=== PATIENT | male | born 1995 ===

== ENCOUNTER 2020-12-19 01:04 | Emergency (ER) | payer SELFPAY ==
--- NOTE | 2020-12-19 03:35 | Emergency Department Report ---
ED General Adult HPI - General Chief complaint: Psych Stated complaint: SUICIDAL IDEATION PUI?: No Time Seen by Provider: 12/19/20 02:32 Source: patient, EMS ( EMS documentation not available at time of chart dictation ), RN notes reviewed Mode of arrival: Ambulatory Limitations: No Limitations - History of Present Illness Initial comments: The patient was evaluated in the emergency department for symptoms described in the history of present illness. He/she was evaluated in the context of the global COVID-19 pandemic, which necessitated consideration that the patient might be at risk for infection with the virus that causes COVID-19. Institutional protocols and algorithms that pertain to the evaluation of patients at risk for COVID-19 are in a state of rapid change based on information released by regulatory bodies including the CDC and federal and state organizations. These policies and algorithms were followed during the patient's care in the emergency department. Please note that these policies, procedures and recommendations changed on a rapid basis. The patient is a 25-year-old gentleman. He is not known to myself previously. He previously lived in the [facility], and has been here in the [facility] since the beginning of the year. He has a history of ADHD, bipolar and schizophrenia. The patient presents to the ER today with complaint of painless suicidality. He states that he will strangle himself. He denies physical pain. He denies overdose. The patient states that he is homeless. The patient states he has no one to help him out. The patient denies Covid symptomatology. The patient states his suicidal thoughts are constant. He does not describe exacerbating or relieving factors. His suicidal thoughts do not radiate anywhere. -: Gradual Consistency: constant Improves with: other Worsens with: other Associated Symptoms: denies other symptoms - Related Data Allergies Allergy/AdvReac Type Severity Reaction Status Date / Time No Known Allergies Allergy Verified 12/19/20 01:13 ED Review of Systems ROS: Stated complaint: SUICIDAL IDEATION Other details as noted in HPI Comment: All other systems reviewed and negative Psychiatric: depression, suicidal thoughts ED Past Medical Hx - Past Medical History Previous Medical History?: Yes Hx Psychiatric Treatment: Yes (ADHD, Bipolar, schizophrenia) ED Physical Exam - General Limitations: No Limitations General appearance: alert, in no apparent distress - Head Head exam: Present: atraumatic, normocephalic - Eye Eye exam: Present: normal appearance, EOMI. Absent: nystagmus - ENT ENT exam: Present: normal exam, normal orophraynx, mucous membranes moist, normal external ear exam - Neck Neck exam: Present: normal inspection, full ROM. Absent: tenderness, meningismus - Respiratory Respiratory exam: Present: normal lung sounds bilaterally. Absent: respiratory distress, wheezes, rales, rhonchi, stridor, decreased breath sounds - Cardiovascular Cardiovascular Exam: Present: regular rate, normal rhythm, normal heart sounds. Absent: bradycardia, tachycardia, irregular rhythm, systolic murmur, diastolic murmur, rubs, gallop - GI/Abdominal GI/Abdominal exam: Present: soft. Absent: distended, tenderness, guarding, rebound, rigid, pulsatile mass - Rectal Rectal exam: Present: deferred - Extremities Exam Extremities exam: Present: normal inspection, full ROM, other (2+ pulses noted in the bilateral upper and lower extremities. There is no palpable cord. negative Homans sign. Muscular compartments are soft. The pelvis is stable.). Absent: pedal edema, calf tenderness - Back Exam Back exam: Present: normal inspection, full ROM. Absent: tenderness, CVA tenderness (R), CVA tenderness (L), paraspinal tenderness, vertebral tenderness - Neurological Exam Neurological exam: Present: alert, oriented X3, normal gait, other (No facial droop. Tongue midline. Extraocular movements intact bilaterally. Facial sensation intact to light touch in V1, V2, V3 distribution bilaterally. 5 and a 5 strength in 4 extremities. Sensation intact to light touch in 4 extremities.). Absent: motor sensory deficit - Psychiatric Psychiatric exam: Present: flat affect - Skin Skin exam: Present: warm, dry, intact, normal color. Absent: rash ED Course Vital Signs 12/19/20 01:13 Temperature 98.4 F Pulse Rate 100 H Respiratory 18 Rate Blood Pressure 124/80 [Right] O2 Sat by Pulse 96 Oximetry ED Medical Decision Making - Lab Data Result diagrams: 12/19/20 04:05 12/19/20 04:05 Vital Signs 12/19/20 01:13 Temperature 98.4 F Pulse Rate 100 H Respiratory 18 Rate Blood Pressure 124/80 [Right] O2 Sat by Pulse 96 Oximetry Lab Results 12/19/20 12/19/20 12/19/20 Range/Units 04:05 04:05 04:05 WBC 7.2 (4.5-11.0) K/mm3 RBC 4.66 (3.65-5.03) M/mm3 Hgb 13.3 (11.8-15.2) gm/dl Hct 40.0 (35.5-45.6) % MCV 86 (84-94) fl MCH 29 (28-32) pg MCHC 33 (32-34) % RDW 14.3 (13.2-15.2) % Plt Count 223 (140-440) K/mm3 Sodium 137 (137-145) mmol/L Potassium 4.2 (3.6-5.0) mmol/L Chloride 103.1 (98-107) mmol/L Carbon Dioxide 25 (22-30) mmol/L Anion Gap 13 mmol/L BUN 19 (9-20) mg/dL Creatinine 0.9 (0.8-1.3) mg/dL Estimated GFR > 60 ml/min BUN/Creatinine Ratio 21 % Glucose 103 H (75-100) mg/dL Calcium 8.9 (8.4-10.2) mg/dL Magnesium 2.30 (1.7-2.3) mg/dL Total Creatine Kinase 193 H (55-170) units/L TSH 1.910 (0.270-4.200) mlU/mL Salicylates (2.8-20.0) mg/dL Acetaminophen (10.0-30.0) ug/mL Plasma/Serum Alcohol (0-0.07) % 12/19/20 12/19/20 12/19/20 Range/Units 04:05 04:05 04:05 WBC (4.5-11.0) K/mm3 RBC (3.65-5.03) M/mm3 Hgb (11.8-15.2) gm/dl Hct (35.5-45.6) % MCV (84-94) fl MCH (28-32) pg MCHC (32-34) % RDW (13.2-15.2) % Plt Count (140-440) K/mm3 Sodium (137-145) mmol/L Potassium (3.6-5.0) mmol/L Chloride (98-107) mmol/L Carbon Dioxide (22-30) mmol/L Anion Gap mmol/L BUN (9-20) mg/dL Creatinine (0.8-1.3) mg/dL Estimated GFR ml/min BUN/Creatinine Ratio % Glucose (75-100) mg/dL Calcium (8.4-10.2) mg/dL Magnesium (1.7-2.3) mg/dL Total Creatine Kinase (55-170) units/L TSH (0.270-4.200) mlU/mL Salicylates < 0.3 L (2.8-20.0) mg/dL Acetaminophen 5.0 L (10.0-30.0) ug/mL Plasma/Serum Alcohol < 0.01 (0-0.07) % - Medical Decision Making Differential diagnosis, including but not limited to: Mood disorder, suicidality, dysthymia, malingering, secondary gain, medical clearance for psychiatric placement, encounter for behavioral health screening examination Assessment and plan: 25-year-old gentleman, with resolved tachycardia, who presents as awake, alert, cooperative, in no acute distress, who states that he is suicidal with a plan to strangle himself. I suspect that this patient is presenting for the purposes of secondary gain. However, this patient has poor psychosocial resources and outside support system, and is also homeless, and rep resents a danger to himself. He is placed on a 1013. Screening laboratory studies unremarkable. Urinalysis, urine drug screen, and Covid swab ordered in anticipation of psychiatric placement and disposition. The emergency room will follow up on the Covid swab, UDS, and urinalysis. Mental health consultation is requested. At this point in time, this patient does not appear to have an immediate medical contraindication to psychiatric admission, evaluation, consultation and placement. Final disposition as per psychiatric team. Should they recommend discharge, this patient will have his 1013 rescinded and discontinued, and he will be given outpatient resources. Critical care attestation.: If time is entered above; I have spent that time in minutes in the direct care of this critically ill patient, excluding procedure time. ED Disposition Clinical Impression: Medical clearance for psychiatric admission Disposition: [address] [place] [address] Is pt being admited?: No Does the pt Need Aspirin: No Condition: Good
[2020-12-19] MEDS ORDERED: HALOPERIDOL LACTATE 5 MG/1 ML INJ IM PRN (03:47)
[2020-12-19] MEDS ORDERED: LORazepam 2 MG/ML VIAL IM PRN (03:47)
[2020-12-19] MEDS ORDERED: diphenhydrAMINE 25 MG CAP PO PRN (03:47)
[2020-12-19 04:23] LABS: Hemoglobin 13.3 gm/dl (11.8-15.2); Mean Corpuscular HGB Conc 33 % (32-34); Mean Corpuscular Volume 86 fl (84-94); Platelet Count 223 K/mm3 (140-440); Red Blood Count 4.66 M/mm3 (3.65-5.03); Red Cell Distribution Width 14.3 % (13.2-15.2)
[2020-12-19 04:44] LABS: BUN/Creatinine Ratio 21; Blood Urea Nitrogen 19 mg/dL (9-20); Calcium 8.9 mg/dL (8.4-10.2); Hemolysis Index 21
[2020-12-19 08:14] LABS: Bilirubin,Urine NEG (Negative); Blood,Urine NEG (Negative); Color,Urine Yellow (Yellow); Mucus,Urine 2+ /HPF; Protein,Urine <15 mg/dL mg/dL (Negative); Urobilinogen,Urine < 2.0 mg/dL (<2.0)
[2020-12-19 08:22] LABS: Amphetamine Screen,Urine Negative; Benzodiazepines Screen,Urine Negative; Cocaine Screen,Urine Negative; Methadone Screen,Urine Negative; Opiate Screen,Urine Negative
[2020-12-19 09:17] LABS: Cannabinoid Screen,Urine Positive
--- NOTE | 2020-12-19 10:36 | Consultation ---
History of Present Illness - Reason for Consult Consult date: 12/19/20 Reason for consult: SI - History of Present Psychiatric Illness Janiya Catalan is a 25y/o male patient who endorses suicidal thoughts. The patient states he is tired of living on the streets. He says he is hearing voices telling him to hurt himself. The patient says he has a plan to strangle himself. He says he's from [place] and has no family around. The patient says "I followed a girl here and she bounced on me." When asking why won't he go back to [place], the patient says "I'm not going backwards." He says he has a history of bipolar, schizophrenia, and ADHD. PAST PSYCHIATRIC HISTORY Diagnoses: ADHD, Bipolar, Schizophrenia Suicide attempts or Self-harm behavior: Yes Prior psychiatric hospitalizations: Yes Substance Abuse history: Denies Previous psychiatric medications tried: abilify, trazodone, zoloft, remeron, risperidone Outpatient treatment: None reported PAST MEDICAL HISTORY: None reported Family Psychiatric History: None reported or documented SOCIAL HISTORY Marital Status: single Living Arrangements: homeless Employment Status: unemployed Access to guns/weapons: None report Education: History of Abuse: Denies Legal History: None reported REVIEW OF SYSTEMS Constitutional: Negative for weight loss ENT: Negative for stridor Respiratory: Negative for cough or hemoptysis All other systems reviewed and are negative MENTAL STATUS EXAMINATION General Appearance and Behavior: Age appropriate, good hygiene, wearing appropriate clothes, calm and cooperative Cooperation: cooperative Psychomotor Behavior: Psychomotor normal Mood: Depressed Affect and affective range: congruent with stated mood Thought Process: goal directed Thought Content: Hallucinations, hopelessness Speech: Normal rate, volume and rhythm Suicidal Ideation: Yes Homicidal Ideation: Denies Hallucinations: Auditory Delusions: None elicited Impulse Control: Limied Insight and Judgment: Limited insight and judgment Memory: Limited Attention: Limited Orientation: Alert, oriented Assessment and Plan (1)Bipolar Disorder TREATMENT PLAN 1013 Zoloft 25mg po daily Abilift 5mg po daily Trazodone 50mg po qhs Sitter: per primary Medical: per primary Disposition: Recommend acute psychiatric inpatient treatment Will follow. Thanks Case staffed with Dr. Ny Medications and Allergies Allergies Allergy/AdvReac Type Severity Reaction Status Date / Time No Known Allergies Allergy Verified 12/19/20 01:13 Home Medications Medication Instructions Recorded Confirmed Last Taken Type No Known Home Medications [No 12/19/20 12/19/20 Unknown History Reported Home Medications] Active Meds: Active Medications Diphenhydramine HCl (Diphenhydramine 25 Mg Cap) 50 mg PO QHS PRN PRN Reason: Insomnia Haloperidol Lactate (Haloperidol Lactate 5 Mg/1 Ml Inj) 5 mg IM Q6HR PRN PRN Reason: Agitation Lorazepam (Lorazepam 2 Mg/Ml Vial) 2 mg IM Q4HR PRN PRN Reason: Agitation Mental Status Exam - Vital signs Last Vital Signs Temp 98.2 F 12/19/20 08:40 Pulse 98 H 12/19/20 08:40 Resp 18 12/19/20 08:40 BP 118/65 12/19/20 08:40 Pulse Ox 98 12/19/20 08:40 Results Result Diagrams: 12/19/20 04:05 12/19/20 04:05 Abnormal lab results 12/19/20 12/19/20 12/19/20 Range/Units 04:05 04:05 04:05 Glucose 103 H (75-100) mg/dL Total Creatine Kinase 193 H (55-170) units/L Salicylates < 0.3 L (2.8-20.0) mg/dL Acetaminophen 5.0 L (10.0-30.0) ug/mL All other labs normal.
[2020-12-19] MEDS ORDERED: ARIPiprazole 5 MG TAB PO SCH (12:00)
[2020-12-19] MEDS ORDERED: ESCITALOPRAM 10 MG/10 ML ORAL LIQD PO SCH (12:00)
[2020-12-19] MEDS ORDERED: traZODone 50 MG TAB PO SCH (22:00)
[2020-12-20 08:15] VITALS: BP 114/63
== END 2020-12-20 09:02 ==
LOC: ED 01:04
DX: R45.851 Suicidal ideations (principal); Z04.6 Encounter for general psychiatric examination, requested by authority; F90.9 Attention-deficit hyperactivity disorder, unspecified type; F31.9 Bipolar disorder, unspecified; F20.9 Schizophrenia, unspecified; Z20.822 Contact with and (suspected) exposure to COVID-19
CPT/HCPCS: 36415; 80048; 80307; 81001; 82550; 83735; 84443; 85027; 99285; U0003; 80320; G0480

== ENCOUNTER 2021-03-08 01:29 | Emergency (ER) | payer SELFPAY ==
[2021-03-08] MEDS ORDERED: HALOPERIDOL LACTATE 5 MG/1 ML INJ IM PRN (02:10)
[2021-03-08] MEDS ORDERED: LORazepam 2 MG/ML VIAL IM PRN (02:10)
--- NOTE | 2021-03-08 02:11 | Emergency Department Report ---
ED General Adult HPI - General Chief complaint: Psych Stated complaint: SI PUI?: No Time Seen by Provider: 03/08/21 02:02 Source: patient, EMS (Verbal report received from emergency medical services. EMS documentation not available at time of chart dictation ), RN notes reviewed, old records reviewed Mode of arrival: Ambulatory Limitations: No Limitations - History of Present Illness Initial comments: The patient was evaluated in the emergency department for symptoms described in the history of present illness. He/she was evaluated in the context of the global COVID-19 pandemic, which necessitated consideration that the patient might be at risk for infection with the virus that causes COVID-19. Institutional protocols and algorithms that pertain to the evaluation of patients at risk for COVID-19 are in a state of rapid change based on information released by regulatory bodies including the CDC and federal and stat e organizations. These policies and algorithms were followed during the patient's care in the emergency department. Please note that these policies, procedures and recommendations changed on a rapid basis. The patient is a 25-year-old gentleman whom I have evaluated in the past. He is brought to the hospital today by emergency medical services. The patient today complains of painless suicidality. He states he might strangle himself or overdose. EMS informs me that they received a 911 phone call for an individual complaining of suicidality and homelessness. This patient was reportedly discharged from a psychiatric facility 2 to 3 days ago. The patient states he has nowhere to go. The patient denies physical pain. The patient denies COVID symptoms. Consistency: constant Improves with: none Worsens with: none Associated Symptoms: denies other symptoms - Related Data Home Medications Medication Instructions Recorded Confirmed Last Taken No Known Home Medications [No 12/19/20 12/19/20 Unknown Reported Home Medications] Allergies Allergy/AdvReac Type Severity Reaction Status Date / Time No Known Allergies Allergy Verified 03/08/21 01:59 ED Review of Systems ROS: Stated complaint: SI Other details as noted in HPI Comment: All other systems reviewed and negative Psychiatric: as per HPI, suicidal thoughts ED Past Medical Hx - Past Medical History Hx Psychiatric Treatment: Yes (ADHD, Bipolar, schizophrenia) - Social History Smoking Status: Unknown if ever smoked - Medications Home Medications: Home Medications Medication Instructions Recorded Confirmed Last Taken Type No Known Home Medications [No 12/19/20 12/19/20 Unknown History Reported Home Medications] ED Physical Exam - General Limitations: No Limitations General appearance: alert, in no apparent distress, obese - Head Head exam: Present: atraumatic, normocephalic - Eye Eye exam: Present: normal appearance, EOMI - ENT ENT exam: Present: normal exam, normal orophraynx, mucous membranes moist, normal external ear exam - Neck Neck exam: Present: normal inspection, full ROM. Absent: tenderness, meningismus - Respiratory Respiratory exam: Present: normal lung sounds bilaterally. Absent: respiratory distress, wheezes, rales, rhonchi, stridor, decreased breath sounds - Cardiovascular Cardiovascular Exam: Present: regular rate, normal rhythm, normal heart sounds. Absent: bradycardia, tachycardia, irregular rhythm, systolic murmur, diastolic murmur, rubs, gallop - GI/Abdominal GI/Abdominal exam: Present: soft. Absent: distended, tenderness, guarding, rebound, rigid, pulsatile mass - Rectal Rectal exam: Present: deferred - Extremities Exam Extremities exam: Present: normal inspection, full ROM, other (2+ pulses noted in the bilateral upper and lower extremities. There is no palpable cord. negative Homans sign. Muscular compartments are soft. The pelvis is stable.). Absent: pedal edema, calf tenderness - Back Exam Back exam: Present: normal inspection, full ROM. Absent: tenderness, CVA tenderness (R), CVA tenderness (L), paraspinal tenderness, vertebral tenderness - Neurological Exam Neurological exam: Present: alert, oriented X3, normal gait, other (No facial droop. Tongue midline. Extraocular movements intact bilaterally. Facial sensation intact to light touch in V1, V2, V3 distribution bilaterally. 5 and a 5 strength in 4 extremities. Sensation intact to light touch in 4 extremities.). Absent: motor sensory deficit - Psychiatric Psychiatric exam: Present: flat affect, suicidal ideation - Skin Skin exam: Present: warm, dry, intact, normal color. Absent: rash ED Course Vital Signs 03/08/21 01:58 Temperature 98.9 F Pulse Rate 73 Respiratory 18 Rate Blood Pressure 150/90 [Left] O2 Sat by Pulse 100 Oximetry - Reevaluation(s) Reevaluation #1: 03/08/21 03:19 Differential diagnosis, including but not limited to: Malingering, secondary gain, encounter for medical screening examination, encounter for behavioral health screening examination Assessment and plan: 25-year-old gentleman, who was afebrile, with reassuring vital signs, who is clinically sober with a GCS of 15, presenting to the ER today with a primary complaint of suicidality and homelessness. The patient is reportedly discharged from a psychiatric facility 2 to 3 days ago. I suspect that this patient is presenting for the purposes of secondary gain, i.e. usp, and food. However, given poor support, lack of outpatient resources, patient will be placed on 1013, appropriate laboratory studies will be ordered, and we will request a psychiatric consultation and evaluation. COVID swab ordered in anticipation of potential placement. I discussed this plan of care with the patient, who is agreeable. 03/08/21 04:12 Laboratory studies are unremarkable. Urinalysis is pending. Patient does not appear to have an immediate medical contraindication to psychiatric admission, evaluation, consultation and placement. Ultimate disposition as per the p sychiatric team. The emergency room will follow along as the patient provides a urine sample. However, the patient is young and medically healthy, and denies irritative/obstructive urinary symptoms ED Medical Decision Making - Lab Data Result diagrams: 03/08/21 02:15 03/08/21 02:15 Vital Signs 03/08/21 01:58 Temperature 98.9 F Pulse Rate 73 Respiratory 18 Rate Blood Pressure 150/90 [Left] O2 Sat by Pulse 100 Oximetry Lab Results 03/08/21 03/08/21 03/08/21 Range/Units 02:15 02:15 02:15 WBC (4.5-11.0) K/mm3 Hgb (11.8-15.2) gm/dl Sodium 140 (137-145) mmol/L Potassium 4.2 (3.6-5.0) mmol/L Chloride 101.7 (98-107) mmol/L Carbon Dioxide 25 (22-30) mmol/L Anion Gap 18 mmol/L BUN 15 (9-20) mg/dL Creatinine 0.9 (0.8-1.3) mg/dL Estimated GFR > 60 ml/min BUN/Creatinine Ratio 17 % Glucose 95 (75-100) mg/dL Calcium 9.1 (8.4-10.2) mg/dL Salicylates < 0.3 L (2.8-20.0) mg/dL Acetaminophen 5.0 L (10.0-30.0) ug/mL Plasma/Serum Alcohol (0-0.07) % 03/08/21 03/08/21 Range/Units 02:15 02:15 WBC 7.1 (4.5-11.0) K/mm3 Hgb 13.4 (11.8-15.2) gm/dl Sodium (137-145) mmol/L Potassium (3.6-5.0) mmol/L Chloride (98-107) mmol/L Carbon Dioxide (22-30) mmol/L Anion Gap mmol/L BUN (9-20) mg/dL Creatinine (0.8-1.3) mg/dL Estimated GFR ml/min BUN/Creatinine Ratio % Glucose (75-100) mg/dL Calcium (8.4-10.2) mg/dL Salicylates (2.8-20.0) mg/dL Acetaminophen (10.0-30.0) ug/mL Plasma/Serum Alcohol < 0.01 (0-0.07) % Critical care attestation.: If time is entered above; I have spent that time in minutes in the direct care of this critically ill patient, excluding procedure time. ED Disposition Clinical Impression: Homelessness, Suicidal ideation, Medical clearance for psychiatric admission Disposition: [address] [place] [address] Is pt being admited?: No Does the pt Need Aspirin: No Condition: Good Referrals: PRIMARY CARE, [Primary Care Provider] - 3-5 Days
[2021-03-08 02:57] LABS: BUN/Creatinine Ratio 17; Blood Urea Nitrogen 15 mg/dL (9-20); Calcium 9.1 mg/dL (8.4-10.2); Hemoglobin 13.4 gm/dl (11.8-15.2); Hemolysis Index 21
[2021-03-08 03:33] LABS: Hematocrit 40.4 % (35.5-45.6); Mean Corpuscular HGB Conc 33 % (32-34); Mean Corpuscular Volume 83 fl (84-94); Platelet Count 235 K/mm3 (140-440); Red Blood Count 4.85 M/mm3 (3.65-5.03); Red Cell Distribution Width 14.1 % (13.2-15.2)
--- NOTE | 2021-03-08 10:28 | Consultation ---
History of Present Illness - Reason for Consult Consult date: 03/08/21 Reason for consult: suicidal ideation - History of Present Psychiatric Illness Janiya Catalan is a 25 year old male with history of Bipolar, Schizophrenia, and ADHD who presents to the ED with suicidal ideation. In my interview with the patient, he is seclusion. The patient reports that he was recently discharged from [facility]. The patient state recent stressor such as homelessness. The patient endorses suicidal ideation, auditory and visual hallucinations " voices are saying hurt myself, and I see blood everywhere." PAST PSYCHIATRIC HISTORY: Diagnoses: Bipolar, Schizophrenia, ADHD Suicide attempts or Self-harm behavior: Yes Prior psychiatric hospitalizations: Yes Substance Abuse history: Denies Previous psychiatric medications tried: Zoloft, Risperidone Outpatient treatment: Unknown PAST MEDICAL HISTORY: unknown Family Psychiatric History: None reported or documented SOCIAL HISTORY Marital Status: single Living Arrangements: homeless Employment Status: unemployed Access to guns/weapons: Denies Education:10th History of Abuse:denies Legal History: Denies REVIEW OF SYSTEMS Constitutional: Negative for weight loss ENT: Negative for stridor Respiratory: Negative for cough or hemoptysis All other systems reviewed and are negative MENTAL STATUS EXAMINATION General Appearance and Behavior: Age appropriate, good hygiene, wearing appropriate clothes. calm, cooperative Cooperation: Cooperative Psychomotor Behavior: Psychomotor normal Mood:"depressed" Affect and affective range: congruent with stated mood Thought Process: Circumstantial Thought Content: Suicidal Speech: normal tone and pace Suicidal Ideation:Yes Homicidal Ideation: Denies Hallucinations: Yes Delusions:Denies Impulse Control: Limited Insight and Judgment: Limited insight and poor judgment Memory: Limited Attention: distracted Orientation: a/o x 3 Assessment (1)Schizophrenia (2) Current Visit: Yes Status: Acute Treatment plan 1013 Continue previous prescribed meds Start Risperidone 1 mg po BID Start Zoloft 50 mg po Daily Risks, benefits and alternatives of medications discussed with the patient, questions answered and consent obtained from patient. PSYCHOTHERAPY: Supportive psychotherapy provided MEDICAL: Per primary team DELIRIUM PRECAUTIONS: Please re-orient patient frequently, keep lights on during the day, and minimize benzodiazepines and opiates as these medications could worsen patient's confusion. [employer]: Per medical team DISPOSITION: Recommend acute inpatient psychiatric hospitalization. Will follow. Thank you for the consult. Please contact with any questions and/or concerns. Case staffed with Dr. Anant Medications and Allergies Allergies Allergy/AdvReac Type Severity Reaction Status Date / Time No Known Allergies Allergy Verified 03/08/21 01:59 Home Medications Medication Instructions Recorded Confirmed Last Taken Type No Known Home Medications [No 12/19/20 12/19/20 Unknown History Reported Home Medications] Active Meds: Active Medications Haloperidol Lactate (Haloperidol Lactate 5 Mg/1 Ml Inj) 5 mg IM Q6HR PRN PRN Reason: Agitation Lorazepam (Lorazepam 2 Mg/Ml Vial) 2 mg IM Q4HR PRN PRN Reason: Agitation Mental Status Exam - Vital signs Last Vital Signs Temp 98.9 F 03/08/21 01:58 Pulse 73 03/08/21 01:58 Resp 18 03/08/21 01:58 BP 150/90 03/08/21 01:58 Pulse Ox 100 03/08/21 01:58 Results Result Diagrams: 03/08/21 02:15 03/08/21 02:15 Abnormal lab results 03/08/21 03/08/21 03/08/21 Range/Units 02:15 02:15 02:15 MCV 83 L (84-94) fl Salicylates < 0.3 L (2.8-20.0) mg/dL Acetaminophen 5.0 L (10.0-30.0) ug/mL All other labs normal.
[2021-03-08] MEDS ORDERED: SERTRALINE 50 MG TAB PO NR (10:36)
[2021-03-08] MEDS: risperiDONE 1 MG TAB PO SCH ×2 (11:30→23:37)
--- NOTE | 2021-03-08 12:28 | Event Note ---
Date: 03/08/21 S: Patient reportedly fondling himself all night requiring seclusion. No other events reported overnight. O: Vital Signs - 8 hr 03/08/21 11:07 Temperature 98 F Pulse Rate 78 Respiratory 16 Rate Blood Pressure 118/72 [Left] O2 Sat by Pulse 98 Oximetry A: Schizophrenia P: 1013, awaiting inpatient psych
[2021-03-08 20:25] LABS: Bilirubin,Urine NEG (Negative); Blood,Urine NEG (Negative); Color,Urine Straw (Yellow); Protein,Urine <15 mg/dL mg/dL (Negative); RBC,Urine < 1.0 /HPF (0.0-6.0); Urobilinogen,Urine < 2.0 mg/dL (<2.0); WBC,Urine < 1.0 /HPF (0.0-6.0)
[2021-03-08 20:31] LABS: Amphetamine Screen,Urine Negative; Benzodiazepines Screen,Urine Negative; Cannabinoid Screen,Urine Negative; Cocaine Screen,Urine Negative; Methadone Screen,Urine Negative; Opiate Screen,Urine Negative
--- NOTE | 2021-03-09 09:18 | Progress Note ---
Subjective - Reason for Consult Consult date: 03/09/21 Reason for consult: SI - Chief Complaint Chief complaint: The patient was seen today. He is in the seclusion room for masturbation, according to staff. During my evaluation of the patient, he says he is depressed. He endorses suicidal thoughts with a plan to strangle himself. The patient says "I'm homeless, and there is nothing to eat." He says "I will strangle myself. Not kidding." He says he's from [place] and says he has no family or social support. He denies hallucinations of any kind. REVIEW OF SYSTEMS Constitutional: Negative for weight loss ENT: Negative for stridor Respiratory: Negative for cough or hemoptysis All other systems reviewed and are negative MENTAL STATUS EXAMINATION General Appearance and Behavior: Age appropriate, good hygiene, wearing appropriate clothes. calm, cooperative Cooperation: Cooperative Psychomotor Behavior: Psychomotor normal Mood:"depressed" Affect and affective range: congruent with stated mood Thought Process: Circumstantial Thought Content: Suicidal Speech: normal tone and pace Suicidal Ideation:Yes Homicidal Ideation: Denies Hallucinations: Yes Delusions:Denies Impulse Control: Limited Insight and Judgment: Limited insight and poor judgment Memory: Limited Attention: distracted Orientation: a/o x 3 Assessment (1)Schizophrenia Current Visit: Yes Status: Acute Treatment plan 1013 COntinue meds Start Lexapro 5mg po daily Risks, benefits and alternatives of medications discussed with the patient, questions answered and consent obtained from patient. PSYCHOTHERAPY: Supportive psychotherapy provided MEDICAL: Per primary team DELIRIUM PRECAUTIONS: Please re-orient patient frequently, keep lights on during the day, and minimize benzodiazepines and opiates as these medications could worsen patient's confusion. THERAPY ADMINISTRATIVE ASSISTANT: Per medical team DISPOSITION: Recommend acute inpatient psychiatric hospitalization. Will follow. Thank you for the consult. Please contact with any questions and/or concerns. Case staffed with Dr. Ny Mental Status Exam - Vital signs Last Vital Signs Temp 97.6 F 03/08/21 19:48 Pulse 65 03/08/21 19:48 Resp 16 03/08/21 19:48 BP 132/80 03/08/21 19:48 Pulse Ox 98 03/08/21 21:00
[2021-03-09] MEDS: ESCITALOPRAM 10 MG TAB PO SCH (10:50)
[2021-03-09] MEDS: risperiDONE 1 MG TAB PO SCH ×2 (10:50→23:04)
--- NOTE | 2021-03-09 11:14 | Emergency Department Report ---
Blank Doc - Documentation Documentation: This morning, patient is still verbalizing suicidal thoughts. He has been david juan in isolation due to masturbation. He plans on strangling himself. Labs have been reviewed. He is medically cleared. We are awaiting psychiatric disposition. They are planning on admitting the patient at this time.
[2021-03-10 03:13] VITALS: BP 115/79
[2021-03-10] MEDS: risperiDONE 1 MG TAB PO SCH (10:02)
[2021-03-10] MEDS: ESCITALOPRAM 10 MG TAB PO SCH (10:03)
--- NOTE | 2021-03-10 11:00 | Progress Note ---
Subjective - Reason for Consult Consult date: 03/10/21 Reason for consult: psychosis - Chief Complaint Chief complaint: The patient was seen today. He is in the seclusion room naked. He is masturbating. I tap on the glass and tell him to cover up. He does. The patient endorses SI with a plan to strangle himself. He says he is depressed and "seeing blood." REVIEW OF SYSTEMS Constitutional: Negative for weight loss ENT: Negative for stridor Respiratory: Negative for cough or hemoptysis All other systems reviewed and are negative MENTAL STATUS EXAMINATION General Appearance and Behavior: Age appropriate, good hygiene, wearing appropriate clothes. calm, cooperative Cooperation: Cooperative Psychomotor Behavior: Psychomotor normal Mood:"depressed" Affect and affective range: congruent with stated mood Thought Process: Circumstantial Thought Content: Suicidal Speech: normal tone and pace Suicidal Ideation: Yes Homicidal Ideation: Denies Hallucinations: Yes Delusions: Denies Impulse Control: Limited Insight and Judgment: Limited insight and poor judgment Memory: Limited Attention: distracted Orientation: a/o x 3 Assessment (1)Schizophrenia Current Visit: Yes Status: Acute Treatment plan 1013 Increase Risperidone 1mg po TID Increase Lexapro 10mg po daily Risks, benefits and alternatives of medications discussed with the patient, questions answered and consent obtained from patient. PSYCHOTHERAPY: Supportive psychotherapy provided MEDICAL: Per primary team DELIRIUM PRECAUTIONS: Please re-orient patient frequently, keep lights on during the day, and minimize benzodiazepines and opiates as these medications could worsen patient's confusion. BROADCAST CHECKER: Per medical team DISPOSITION: Recommend acute inpatient psychiatric hospitalization. Will follow. Thank you for the consult. Please contact with any questions and/or concerns. Case staffed with Dr. Ny Mental Status Exam - Vital signs Last Vital Signs Temp 98.2 F 03/10/21 03:12 Pulse 104 H 03/10/21 03:12 Resp 18 03/10/21 03:12 BP 115/79 03/10/21 03:12 Pulse Ox 96 03/10/21 03:12
--- NOTE | 2021-03-10 11:10 | Event Note ---
Date: 03/10/21 pt was evaluted , still has SI and HI , vss no distress
[2021-03-10] MEDS ORDERED: risperiDONE 1 MG TAB PO SCH (14:00)
[2021-03-11] MEDS ORDERED: ESCITALOPRAM 10 MG TAB PO SCH (10:00)
== END 2021-03-10 16:25 ==
LOC: ED 01:29
DX: R45.851 Suicidal ideations (principal); Z59.00 Homelessness unspecified; Z20.822 Contact with and (suspected) exposure to COVID-19
CPT/HCPCS: 36415; 80048; 80307; 81001; 85027; 99285; U0003; 80320; G0480

== ENCOUNTER 2021-04-09 09:30 | Emergency (ER) | payer SELFPAY ==
[2021-04-09 09:37] LABS: Basophils % (Auto) 0.5 % (0.0-1.8); Eosinophils % (Auto) 0.7 % (0.0-4.3); Hematocrit 38.7 % (35.5-45.6); Hemoglobin 12.9 gm/dl (11.8-15.2); Lymphocytes # (Auto) 1.2 K/mm3 (1.2-5.4); Lymphocytes % (Auto) 16.1 % (13.4-35.0); Mean Corpuscular HGB Conc 33 % (32-34); Mean Corpuscular Volume 85 fl (84-94); Monocytes # (Auto) 0.8 K/mm3 (0.0-0.8); Monocytes % (Auto) 10.7 % (0.0-7.3); Platelet Count 288 K/mm3 (140-440); Red Blood Count 4.58 M/mm3 (3.65-5.03); Red Cell Distribution Width 14.6 % (13.2-15.2)
[2021-04-09 10:09] LABS: BUN/Creatinine Ratio 18; Blood Urea Nitrogen 16 mg/dL (9-20); Calcium 8.8 mg/dL (8.4-10.2); Hemolysis Index 6
[2021-04-09] MEDS ORDERED: DIVALPROEX DR 125 MG TAB PO SCH (13:00)
[2021-04-09] MEDS: ARIPiprazole 5 MG TAB PO SCH (13:23)
[2021-04-09 17:21] LABS: Amphetamine Screen,Urine Negative; Benzodiazepines Screen,Urine Negative; Cocaine Screen,Urine Negative; Methadone Screen,Urine Negative; Opiate Screen,Urine Negative
[2021-04-09 17:24] LABS: Mucus,Urine FEW /HPF; RBC,Urine < 1.0 /HPF (0.0-6.0)
[2021-04-09 17:32] LABS: Cannabinoid Screen,Urine Positive
[2021-04-09 17:51] LABS: Bilirubin,Urine Negative (Negative); Blood,Urine Negative (Negative); Color,Urine Yellow (Yellow)
[2021-04-09 17:52] LABS: Protein,Urine <15 mg/dL mg/dL (Negative)
[2021-04-09] MEDS ORDERED: traZODone 50 MG TAB PO SCH (22:00)
[2021-04-10] MEDS: ARIPiprazole 5 MG TAB PO SCH (11:38)
[2021-04-10] MEDS: DIVALPROEX DR 250 MG TAB PO SCH (23:31)
[2021-04-11] MEDS: DIVALPROEX DR 250 MG TAB PO SCH (09:54)
[2021-04-11] MEDS ORDERED: ARIPiprazole 10 MG TAB PO SCH (10:00)
[2021-04-11 12:48] VITALS: BP 130/70
== END 2021-04-11 12:49 ==
LOC: ED 09:30
DX: R45.851 Suicidal ideations (principal); F31.9 Bipolar disorder, unspecified; F20.9 Schizophrenia, unspecified
CPT/HCPCS: 36415; 80048; 80307; 80320; 81001; 85025; 99284; 99285; G0480